=== PATIENT | male | born 1950 | race Caucasian/White ===

== ENCOUNTER → 2019-01-14 | Outpatient (CLI) | payer OTHER ==
[2018-11-19 11:00] VITALS: BP 126/67
[~2019-01-14] MED LIST: BACL20TA PO; GADOBUTROL 10 MMOL/10 ML VIAL IV ONE; HYDR-2761 PO; LISI1TAB7 PO; NAPR500T8 PO
--- NOTE | 2019-01-14 12:10 | KCIC ---
MR of the right proximal thigh with and without contrast HISTORY: Right gluteal fluid collection. TECHNIQUE: Routine multiplanar sequences before and after intravenous contrast are obtained and are compared with December 03, 2018. FINDINGS: Previously seen fluid collection in the right obturator internus muscle has decreased in size. There is persistent edema and swelling with some disorganized fluid signal within the muscle. Previous exam demonstrated a partially seen fluid collection in the proximal posterior hamstring muscles. This is not seen on today's study. Previously seen intramuscular edema has substantially improved. No new fluid collections are identified. Tear of the hamstring tendon is again seen. There is some fluid signal at the attachment which appears similar. Marrow abnormality with diffuse edema and enhancement, with loss of fatty T1 signal at the ischium is again identified. No new areas of bone destruction are identified. IMPRESSION: 1. Improvement in diffuse soft tissue and intramuscular edema. 2. Partially seen fluid collection in the posterior proximal thigh has resolved. 3. Fluid collection within the obturator internus muscle has decreased. 4. Marrow changes at the ischium are again identified, possibly osteomyelitis. Electronically signed by: Jorden Moya MD (01/14/2019 12:07 PM) [id number]
== END | disposition home or self-care (01) ==
LOC: KCIC MRI 09:54
PROVIDERS: ATTEND Internal Medicine Infectious Disease
DX: R22.41 Localized swelling, mass and lump, right lower limb (principal); I10 Essential (primary) hypertension
CPT/HCPCS: 73720; A9585